=== PATIENT | male | born 1945 | race Two or more races ===

== ENCOUNTER 2019-10-01 11:48 | Inpatient (IN) | payer OTHER ==
[~2019-10-01] VITALS: Ht 170.2 cm; Wt 65.3 kg
[2019-10-01] MEDS ORDERED: LOTREL 10-20 M1 EACH PO (12:25)
--- NOTE | 2019-10-01 14:10 | NUR ---
PTE EVALUADO POR LA DRA GUEVARA QUIEN ORDENA EL [place]. MS N KOURTNEY ORIENTA SOBRE EL MISMO, LO CUAL REFIERE ENTENDER Y REALIZA PRUEBAS DE LABORATORIO MEGAN ORDEN MEDICA Y SIGUIENDO MEDIDAS ASEPTICAS.
== END 2019-10-04 13:16 | disposition home or self-care (01) | DRG 375 ==
LOC: ER 11:48 → SURG 20:21 → MEDJ 10-03 11:25
PROVIDERS: ADMIT Internal Medicine
PROC: 30233N1 Transfusion of Nonautologous Red Blood Cells into Peripheral Vein, Percutaneous Approach (ICD-10-PCS; principal; 2019-10-01)
DX: C18.2 Malignant neoplasm of ascending colon (principal); R65.10 Systemic inflammatory response syndrome (SIRS) of non-infectious origin without acute organ dysfunction; D63.0 Anemia in neoplastic disease; I10 Essential (primary) hypertension; D72.828 Other elevated white blood cell count; E11.9 Type 2 diabetes mellitus without complications; Z79.4 Long term (current) use of insulin

== ENCOUNTER 2019-12-08 11:20 | Inpatient (IN) | payer OTHER ==
[~2019-12-08] VITALS: Ht 170.2 cm; Wt 63.5 kg
[~2019-12-08 11:20] MED LIST: HUMALOG100 UNIT/1; LANTUS; LIPIT PO; LOTREL 10-20 M1 EACH PO; NASAL MIST126 ML; TOPROL XL25 M1 PO
[2019-12-08] MEDS ORDERED: ATORVASTATIN CA20 MG PO (12:00)
[2019-12-08] MEDS ORDERED: LOTREL 5-20 MG1 CAP PO (12:00)
--- NOTE | 2019-12-08 12:03 | NUR ---
PTE REFIERE HEMOGLOBINA BAJA ,Y VA HACER OPERADO POR EL , TOUS COLORECTAL EL AMAYA DE MANANA. Y PTE REFEIRE QUE LO ENVIARON A LA DWAIN DE EMERGENICA PARA COMENZAR A TRANSFUNDIR SANCRE SI LO AMERITA.
--- NOTE | 2019-12-08 15:10 | NUR ---
SE LLAMAM A BANCO DE JANETH Y SE HABLA CON LA MISS. ALVA QUIEN REFIERE ESTAR HOLD LAS UNIDADES , Y POR ORDEN DEL DR. CERON COMENZAR LA TRANSFUSION DE LAS 2 UNIDADES PRBC
[2019-12-20] MEDS ORDERED: BACTRIM DS TAB1 EACH PO (12:19)
[2019-12-20] MEDS ORDERED: ULTRACET PO (12:20)
[2019-12-20] MEDS ORDERED: INTESTINEX680 M1 PO (12:21)
== END 2019-12-20 13:18 | disposition home or self-care (01) | DRG 330 ==
LOC: ER 11:20 → SURG 16:17 → EDBD 12-20 13:18
PROVIDERS: ADMIT Colon & Rectal Surgery
PROC: 07BC4ZX Excision of Pelvis Lymphatic, Percutaneous Endoscopic Approach, Diagnostic (ICD-10-PCS; 2019-12-09)
PROC: 30233N1 Transfusion of Nonautologous Red Blood Cells into Peripheral Vein, Percutaneous Approach (ICD-10-PCS; 2019-12-09)
PROC: 4A19X1Z Monitoring of Respiratory Capacity, External Approach (ICD-10-PCS; 2019-12-09)
PROC: 3E0F7GC Introduction of Other Therapeutic Substance into Respiratory Tract, Via Natural or Artificial Opening (ICD-10-PCS; 2019-12-09)
PROC: 0DTF4ZZ Resection of Right Large Intestine, Percutaneous Endoscopic Approach (ICD-10-PCS; principal; 2019-12-09 17:30)
PROC: B54MZZZ Ultrasonography of Right Upper Extremity Veins (ICD-10-PCS; 2019-12-15)
PROC: B245ZZZ Ultrasonography of Left Heart (ICD-10-PCS; 2019-12-16)
PROC: B54MZZZ Ultrasonography of Right Upper Extremity Veins (ICD-10-PCS; 2019-12-20)
DX: C18.2 Malignant neoplasm of ascending colon (principal); T80.1XXA Vascular complications following infusion, transfusion and therapeutic injection, initial encounter; L02.413 Cutaneous abscess of right upper limb; I80.8 Phlebitis and thrombophlebitis of other sites; D64.9 Anemia, unspecified; I10 Essential (primary) hypertension; E11.9 Type 2 diabetes mellitus without complications; E87.5 Hyperkalemia; Y92.89 Other specified places as the place of occurrence of the external cause; Y84.8 Other medical procedures as the cause of abnormal reaction of the patient, or of later complication, without mention of misadventure at the time of the procedure